=== PATIENT | male | born 1995 | race Hispanic/Latino ===

== ENCOUNTER 2016-12-24 07:58 | Emergency (ER) | payer OTHER ==
[~2016-12-24] VITALS: Ht 170.2 cm; Wt 72.6 kg
--- NOTE | 2016-12-24 08:17 | ED GI/GU/ABDOMINAL COMPLAINT ---
History of Present Illness General Chief Complaint: General Adult Stated Complaint: VOMITTING, X 4 HRS Source: patient Exam Limitations: no limitations Vital Signs & Intake/Output Vital Signs & Intake/Output ED Intake and Output 12/25 0000 12/24 1200 Intake Total Output Total Balance Patient 160 lb Weight Allergies Coded Allergies: No Known Allergies (12/24/16) Reconcile Medications Ibuprofen 800 MG TABLET 1 TAB PO TID PRN PAIN Ondansetron (Zofran Odt) 4 MG TAB.RAPDIS 1 TAB PO Q6 PRN NAUSEA Triage Note: TRIAGE: PT TO ER C/C VOMITING SINCE THIS MORNING, VOMITED X 13 SINCE ONSET. TRIED TO DRINK WATER AND GINGERALE WITH NO SUCCESS. DENIES ANY PAIN AT PRESENT. REPORTS PAIN IN THROAT AND STOMACH WHEN VOMITING. DENIES ANY OTHER S/S. Triage Nurses Notes Reviewed? yes Onset: Abrupt Duration: THIS MORNING Timing: multiple episodes today Location: epigastric Radiation: no radiation Activities at Onset: sleep Prior Abdominal Problems: none Modifying Factors: Worsens With: eating. Associated Symptoms: abdominal pain, nausea/vomiting HPI: 21-year-old male presenting here with chief complaint of abrupt onset of abdominal pain nausea and vomiting this morning after waking up. Patient states he vomited 13 times some clear, some bilious. He states last night he had pizza pocket and 18 are intact as well as 2 shots around 7:00. He is not drinking alcohol on a regular basis. Denies any diarrhea but had a normal bowel movement this morning and normal urination as well. He denies any other sick contacts. Pain is in the epigastric region as well as in the left lower quadrant with vomiting. He also feels some burning in his throat when he vomits. No history of similar symptoms. No medical history or surgical history. Past History Travel History Traveled to [place] past 21 day No Medical History Any Pertinent Medical History? none Neurological: NONE EENT: NONE Cardiovascular: NONE Respiratory: NONE Gastrointestinal: NONE Hepatic: NONE Renal: NONE Musculoskeletal: NONE Psychiatric: NONE Endocrine: NONE Blood Disorders: NONE Cancer(s): NONE AGILE DEVELOPER/Reproductive: NONE Surgical History Surgical History: none Psychosocial History What is your primary language Polish Tobacco Use: Never used ETOH Use: occasional use Illicit Drug Use: denies illicit drug use Family History Hx Contributory? No Review of Systems Review of Systems Constitutional: Denies: chills, fever. EENTM: Reports: no symptoms. Respiratory: Reports: no symptoms. Cardiovascular: Reports: no symptoms. GI: Reports: abdominal pain, nausea, vomiting. Genitourinary: Denies: discharge, dysuria. Musculoskeletal: Denies: back pain. Skin: Reports: no symptoms. Neurological/Psychological: Reports: no symptoms. Hematologic/Endocrine: Denies: bruising, bleeding, polyuria, polydipsia. Immunologic/Allergic: Denies: splenectomy. All Other Systems: Reviewed and Negative Physical Exam Physical Exam General Appearance: well developed/nourished, alert, awake Head: atraumatic, normal appearance Eyes: Bilateral: normal appearance, PERRL, EOMI. Ears, Nose, Throat, Mouth: hearing grossly normal, moist mucous membrane Neck: normal inspection, supple, full range of motion Respiratory: normal breath sounds, chest non-tender, no respiratory distress Cardiovascular: regular rate/rhythm Peripheral Pulses: 2+ brachial (L), 2+ radial (R) Gastrointestinal: normal bowel sounds, soft, non-tender Back: normal inspection, normal range of motion Extremities: normal range of motion Core Measures ACS in differential dx? No Severe Sepsis Present: No Septic Shock Present: No Progress Differential Diagnosis: gastritis, hepatitis, prostatitis, peptic ulcer, PUD/ GERD Plan of Care: Orders Procedure Date/time Status URINALYSIS 12/24 820 Complete LIPASE 12/24 817 Complete COMPREHENSIVE METABOLIC PANEL 12/24 817 Complete CBC WITHOUT DIFFERENTIAL 12/24 817 Complete Laboratory Tests 12/24/16 1037: Urine Color STRAW, Urine Clarity CLEAR, Urine pH 7.0, Ur Specific [place] 1.010, Urine Protein NEG, Urine Ketones NEG, Urine Nitrite NEG, Urine Bilirubin NEG, Urine Urobilinogen 0.2, Ur Leukocyte Esterase NEG, Ur Microscopic EXAM NOT REQUIRED, Urine Hemoglobin NEG, Urine Glucose NEG 12/24/16 0835: Anion Gap 13, Estimated GFR > 60, BUN/Creatinine Ratio 18.9, Glucose 112 H, Calcium 10.4 H, Total Bilirubin 0.8, AST 54, ALT 93 H, Alkaline Phosphatase 102, Total Protein 8.5 H, Albumin 5.0, Globulin 3.5, Albumin/Globulin Ratio 1.4 , Lipase 140, CBC w Diff NO MAN DIFF REQ, RBC 5.51, MCV 88.5, MCH 29.8, RDW 13.2 , MPV 9.9, Gran % 74.8, Lymphocytes % 17.0 L, Monocytes % 7.7, Eosinophils % 0.2, Basophils % 0.3, Absolute Granulocytes 6.5, Absolute Lymphocytes 1.5, Absolute Monocytes 0.7 H, Absolute Eosinophils 0, Absolute Basophils 0, PUBS MCHC 33.6 9:25 am no relief with zofran and protonix. still guarding. toradol, phenergen, u/s ordered. Patient's symptoms much improved. U/S shows right sided hydro. No flank pain or urinary symptoms. U/A negative. Currently tolerating PO liquids without difficulty. Patient will follow up with outpatient urology regarding ultrasound findings. (SRINI PERSAUD,FRANCINE) Diagnostic Imaging: Viewed by Me: Ultrasound. Discussed w/RAD: Ultrasound. Initial ED EKG: none Comments: PATIENT: ALEX FLYNN PRESENT AGE: 21 PATIENT ACCOUNT NO: [id number] : 96 LOCATION: [facility] ORDERING PHYSICIAN: FRANCINE MILLIGAN MD SERVICE DATE: 12/24/16 EXAM TYPE: US - US-LIMITED ABDOMEN EXAMINATION: US ABDOMEN LIMITED CLINICAL INFORMATION: Abdominal pain, nausea, vomiting.. COMPARISON: None TECHNIQUE: Real-time imaging of the right upper quadrant abdominal viscera. FINDINGS: PANCREAS: The pancreas is normal in size and contour. There is no visible pancreatic ductal distention or retroperitoneal effusion. LIVER: Normal. The liver demonstrates normal size, contour and echogenicity. No focal lesion or intrahepatic biliary duct dilatation. GALLBLADDER: Normal. The gallbladder is physiologically distended without evidence of stones, sludge, polyps, wall thickening or pericholecystic fluid. COMMON BILE DUCT: Normal in caliber measuring 0.4 cm in diameter. RIGHT KIDNEY: The right kidney measures 11.1 cm in length. There is normal cortical thickness and echogenicity. There is moderate hydronephrosis. No visible calculi. No perinephric fluid. FREE FLUID: None. IMPRESSION: 1. Right hydronephrosis. No visible calculi. 2. No cholelithiasis or biliary ductal dilatation. DICTATED BY: VIOLETA BERG MD DATE/TIME DICTATED:12/24/161148 TOOL ROOM MACHINIST:SHAILA DATE/TIME TRANSCRIBED:12/24/161148 CONFIDENTIAL, DO NOT COPY WITHOUT APPROPRIATE AUTHORIZATION. <Electronically signed in Other Vendor System> SIGNED BY: VIOLETA BERG MD 1205 Departure Departure Time of Disposition: 1211 Disposition: HOME OR SELF CARE Condition: Stable Clinical Impression Primary Impression: Nausea & vomiting Secondary Impressions: Hydronephrosis, right Referrals: ROXANNE MCCOY DO (PCP/Family) MALIK MORALES MD Additional Instructions: Take the Zofran and ibuprofen as directed. Clear liquid diet today and advance as tolerated. Please follow up with urology specialist listed regarding your ultrasound finding. If you develop any worsening symptoms please return to the ER. Departure Forms: Customer Survey General Discharge Information Prescriptions: Current Visit Scripts Ibuprofen 1 TAB PO TID PRN PAIN #20 TAB Ondansetron (Zofran Odt) 1 TAB PO Q6 PRN NAUSEA #10 TAB
[2016-12-24 09:09] LABS: ABSOLUTE BASOPHIL COUNT 0 /CUMM (0.0-0.2); ABSOLUTE EOSINOPHIL COUNT 0 /CUMM (0.0-0.7); ABSOLUTE GRANULOCYTE CT 6.5 /CUMM (1.4-6.5); ABSOLUTE LYMPH COUNT 1.5 /CUMM (1.2-3.4); ABSOLUTE MONOCYTE COUNT 0.7 /CUMM (0.10-0.60); BASOPHIL % 0.3 % (0.0-2.0); EOSINOPHIL % 0.2 % (0-5); GRANULOCYTE % 74.8 % (42.2-75.2); HEMATOCRIT 48.8 % (42-52); MEAN CORPUSCULAR HGB 29.8 PG (27.0-31.0); MEAN CORPUSCULAR HGB CONC 33.6 G/DL (33.0-37.0); MEAN CORPUSCULAR VOLUME 88.5 FL (80.0-94.0); MEAN PLATELET VOLUME 9.9 FL (7.4-10.4); PLATELET COUNT 196 /CUMM (130-400); RBC DISTRIBUTION WIDTH 13.2 % (11.5-14.5); RED BLOOD CELL CT 5.51 /CUMM (4.70-6.10); WHITE BLOOD CELL COUNT 8.6 /CUMM (4.8-10.8)
[2016-12-24 10:32] VITALS: BP 116/54
--- NOTE | 2016-12-24 12:05 | ULTRASOUND REPORT ---
EXAMINATION: US ABDOMEN LIMITED CLINICAL INFORMATION: Abdominal pain, nausea, vomiting.. COMPARISON: None TECHNIQUE: Real-time imaging of the right upper quadrant abdominal viscera. FINDINGS: PANCREAS: The pancreas is normal in size and contour. There is no visible pancreatic ductal distention or retroperitoneal effusion. LIVER: Normal. The liver demonstrates normal size, contour and echogenicity. No focal lesion or intrahepatic biliary duct dilatation. GALLBLADDER: Normal. The gallbladder is physiologically distended without evidence of stones, sludge, polyps, wall thickening or pericholecystic fluid. COMMON BILE DUCT: Normal in caliber measuring 0.4 cm in diameter. RIGHT KIDNEY: The right kidney measures 11.1 cm in length. There is normal cortical thickness and echogenicity. There is moderate hydronephrosis. No visible calculi. No perinephric fluid. FREE FLUID: None. IMPRESSION: 1. Right hydronephrosis. No visible calculi. 2. No cholelithiasis or biliary ductal dilatation.
[2016-12-24] MEDS ORDERED: IBUPROFEN800 M1 PO (12:13)
[2016-12-24] MEDS ORDERED: ZOFRAN ODT4 M1 PO (12:13)
== END 2016-12-24 12:21 ==
LOC: ERH 07:58
PROVIDERS: Emergency Medicine
DX: R11.2 Nausea with vomiting, unspecified (principal); N13.30 Unspecified hydronephrosis
CPT/HCPCS: 81003; 96361; 96374; 96375; J1885; J2405; J2550